=== PATIENT | female | born 1980 | race African-American/Black ===

== ENCOUNTER → 2017-05-15 | Outpatient (CLI) | payer BC, OTHER ==
[~2017-05-15] MED LIST: CEFOXITIN 1 GM/D5W RTU 2 GM/100 ML RTUPB IV ONE
== END ==
LOC: DACC 10:45
PROVIDERS: ATTEND Physician Assistant
DX: L70.0 Acne vulgaris (principal); Z79.899 Other long term (current) drug therapy
CPT/HCPCS: 36415; 84132

== ENCOUNTER → 2017-06-16 | Outpatient (CLI) | payer BC, OTHER | LOC: OD 07:09 | PROVIDERS: ATTEND Physician Assistant | DX: L70.0 Acne vulgaris (principal); Z79.899 Other long term (current) drug therapy | CPT/HCPCS: 36415; 84132 ==

== ENCOUNTER → 2018-02-01 | Outpatient (CLI) | payer BC, OTHER | LOC: DACC 08:27 | PROVIDERS: ATTEND Physician Assistant | DX: L70.0 Acne vulgaris (principal); Z79.899 Other long term (current) drug therapy | CPT/HCPCS: 36415; 84132 ==

== ENCOUNTER → 2018-04-15 | Outpatient (CLI) | payer BC | LOC: OD 08:09 | PROVIDERS: ATTEND Physician Assistant | DX: L70.0 Acne vulgaris (principal); Z79.899 Other long term (current) drug therapy | CPT/HCPCS: 36415; 84132 ==

== ENCOUNTER → 2018-09-29 | Outpatient (CLI) | payer BC, OTHER | LOC: LAB 07:27 | PROVIDERS: ATTEND Physician Assistant | DX: L70.0 Acne vulgaris (principal); Z79.899 Other long term (current) drug therapy | CPT/HCPCS: 36415; 84132 ==

== ENCOUNTER → 2019-04-25 | Outpatient (CLI) | payer BC, OTHER | LOC: LAB 15:22 | PROVIDERS: ATTEND Physician Assistant | DX: L70.0 Acne vulgaris (principal); Z79.899 Other long term (current) drug therapy | CPT/HCPCS: 36415; 84132 ==